=== PATIENT | female | born 1980 | race Caucasian/White ===

== ENCOUNTER → 2017-01-05 | Outpatient (CLI) | payer BC ==
[2017-01-09 01:36] LABS: CHLAMYDIA TRACH RNA*** NOT DETECTED (NOT DETECTED); GC (NEIS GONORRHOEAE)RNA** NOT DETECTED (NOT DETECTED)
== END | disposition home or self-care (01) ==
LOC: C.LAB 15:35
PROVIDERS: ATTEND Obstetrics & Gynecology
DX: Z34.81 Encounter for supervision of other normal pregnancy, first trimester (principal)

== ENCOUNTER → 2017-03-24 | Outpatient (CLI) | payer BC ==
[2017-03-24 11:17] LABS: BASO % 0.2 %; BASO ABS # 0.01 K/uL (0-0.2); COMPLETE YES; EOS % 1.1 %; HEMATOCRIT 37.9 % (37-47); IG% 0.5 %; LYMPH % 23.5 %; LYMPH ABS # 1.45 K/uL (1.2-3.4); MEAN CELL VOLUME 92.7 fL (80-100); MEAN CORPUSCULAR HEMOGLOBIN 31.3 pg (25-34); MEAN CORPUSCULAR HGB CONC 33.8 g/dl (32-36); MEAN PLATELET VOLUME 10.2 fL (7.4-10.4); MONO % 5.5 %; NEUT % 69.2 %; PLATELET COUNT 224 K/uL (130-400); RED BLOOD COUNT 4.09 M/uL (4.2-5.4); WHITE BLOOD COUNT 6.17 K/uL (4.8-10.8)
[2017-03-24 11:21] LABS: GTGD 50 Grams
== END | disposition home or self-care (01) ==
LOC: C.LAB 08:59
PROVIDERS: ATTEND Obstetrics & Gynecology
DX: Z34.82 Encounter for supervision of other normal pregnancy, second trimester (principal); Z3A.16 16 weeks gestation of pregnancy

== ENCOUNTER → 2017-08-05 | Outpatient (CLI) | payer BC | END | disposition home or self-care (01) | LOC: C.LABSPEC 14:27 | PROVIDERS: ATTEND Obstetrics & Gynecology | DX: O09.513 Supervision of elderly primigravida, third trimester (principal) ==

== ENCOUNTER 2017-09-03 03:39 | Inpatient (IN) | payer BC ==
[~2017-09-03] VITALS: Ht 162.6 cm; Wt 95.0 kg
[2017-09-10] MEDS ORDERED: LACTATED RINGER'S 1000ML 1,000 ML IV PRN (08:04)
[2017-09-10] MEDS ORDERED: MISOPROSTOLTAB 50 MCG TAB PO SCH (08:30)
[2017-09-10 08:33] LABS: HEMATOCRIT 37.6 % (37-47); HEMOGLOBIN 12.6 g/dL (12.0-16.0); MEAN CELL VOLUME 92.2 fL (80-100); MEAN CORPUSCULAR HEMOGLOBIN 30.9 pg (25-34); MEAN CORPUSCULAR HGB CONC 33.5 g/dl (32-36); MEAN PLATELET VOLUME 10.9 fL (7.4-10.4); PLATELET COUNT 165 K/uL (130-400); RED CELL DISTRIBUTION WIDTH CV 13.8 % (11.5-14.5); RED CELL DISTRIBUTION WIDTH SD 46.3 fL (36.4-46.3); WHITE BLOOD COUNT 6.51 K/uL (4.8-10.8)
[2017-09-10] MEDS ORDERED: CETI10TA84 PO (09:04)
[2017-09-10] MEDS ORDERED: PREN-83 (09:04)
[2017-09-10 09:05] VITALS: Ht 162.6 cm; Wt 95.0 kg
[2017-09-10] MEDS ORDERED: DINOPROSTONE 10 MG INSERT PV ONE (13:15)
[2017-09-10] MEDS ORDERED: NURSING VERBAL MED ORDER ONE (21:30)
[2017-09-10] MEDS ORDERED: MISOPROSTOLTAB 50 MCG TAB PO ONE (21:45)
[2017-09-11] MEDS ORDERED: LACTATED RINGER'S 1000ML 500 ML IV PRN (09:36)
[2017-09-11] MEDS ORDERED: OXYTOCIN 30 UNITS/500ML NSS IV PRN ×2 (09:45→18:30)
[2017-09-11] MEDS ORDERED: NURSING VERBAL MED ORDER ONE ×2 (14:30)
[2017-09-11] MEDS ORDERED: BUTORPHANOL TARTRATE 1 MG/ML VIAL ONE (14:37)
[2017-09-11] MEDS ORDERED: ONDANSETRON INJ 2 MG/ML 2 ML VIAL ONE (14:38)
[2017-09-11] MEDS ORDERED: ONDANSETRON INJ 2 MG/ML 2 ML VIAL IV PRN (14:45)
[2017-09-11] MEDS ORDERED: BUTORPHANOL TARTRATE 1 MG/ML VIAL IV PRN (14:45)
[2017-09-11] MEDS ORDERED: LANOLIN OINT EXT PRN (18:30)
[2017-09-11] MEDS ORDERED: DIPHTHERIA/TETANUS/PERTUSSIS 0.5 ML SYR/VIAL IM. ONE (18:30)
[2017-09-11] MEDS ORDERED: BENZOCAINE 20% AER SPR 82.5 GM CAN EXT PRN (18:30)
[2017-09-11] MEDS ORDERED: ACETAMINOPHEN/CODEINE 300/30MG TAB PO PRN ×2 (18:30)
[2017-09-11] MEDS ORDERED: SUPERCREAM 0.870 % 15GM JAR EXT PRN (18:30)
[2017-09-11] MEDS ORDERED: OXYCODONE/ACETAMINOPHEN 5-325 TAB PO PRN (18:30)
[2017-09-11] MEDS ORDERED: ACETAMINOPHEN 325 MG TAB PO PRN (18:30)
[2017-09-11] MEDS ORDERED: HYDROCORTISONE ACETATE 25 MG SUPP PR PRN (18:30)
--- NOTE | 2017-09-11 19:03 | DELIVERY SUMMARY ---
DATE OF OPERATION: 09/11/2017 Ms. Alvarado is a 37-year-old 1, para 1, was brought in for induction of labor. She was approximately 1 week over her due date. At the time we started the induction, while the head was high, cervix was only 1.5 cm dilated. The patient's due date is 09/03/2017. Blood type is A positive. Rubella immune. Vaginal beta strep negative. Stripped her membranes several times in the office. On the day of admission, she was about 1.5 cm dilated, head was high. Started out with 1 tablet of p.o. Cytotec 50 mcg. The patient was having no contractions when we started Cytotec. We then later gave her a second dose of Cytotec later in the evening of the day of admission around 9 or 10 p.m. She contracted well during the night. The contractions continued to get a little bit harder. When I arrived on Wednesday morning and checked her, she was a good 4 cm. We then augmented her contractions with IV Pitocin, and when she was about 5 cm, membranes were ruptured surgically, fluid was clear. We then continued to turn up the Pitocin. She developed a good labor pattern and she made good steady progress, and once the head became fully dilated, it dropped. She did receive about 1 or 2 doses of IV Stadol for pain control, that was it, and she pushed out a live via direct occiput anterior position over an intact perineum. Infant was suctioned through the mouth and the nose. There was a nuchal cord which was reduced over the head and the body. Shoulders were delivered without difficulty. Cord was allowed to pulsate due to the mother's wish and she was placed on the abdomen. After several minutes of pulsating, cord was clamped and cut. Cord blood was taken. With IV Pitocin running, the placenta was removed intact. Inspection revealed the perineum to be intact but she had 2 periurethral lacerations, worse on the right side, it went past the hymenal ring and up the vaginal mucosa. I used running 3-0 chromic to approximate the labia minora right down to the hymenal ring and then up the vagina until I got past the laceration. I did 1 or 2 interrupted [id number] sutures to complete the hemostatic process. I palpated and there was no defect. I then repeated the same thing for the left side, infiltrated the area with local and used a Vicryl, this time I started at the extent of the vaginal defect, approximated the hymenal ring and then went out to the labia majora, actually this one went out to the labia majora with a separate laceration to labia minora and labia minora laceration was repaired with 3-0 chromic. Following this, hemostasis was good. Palpation revealed no hematoma formation. I used a Graves catheter to empty the bladder and ensured patency of the urethra. I then removed all vaginal sponges and documented that the uterus had contracted nicely and that hemostasis was good. I attest to the content of the Intraoperative Record and any orders documented therein. Any exception s are noted below.
[2017-09-11] MEDS: DOCUSATE SODIUM 100 MG CAP PO SCH (20:00)
[2017-09-11 22:00] VITALS: BP 108/63; PULSE 76; TEMP 37.1
[2017-09-12 01:00] VITALS: BP 99/61; PULSE 77; TEMP 37
[2017-09-12 05:10] VITALS: BP 110/67; PULSE 69; TEMP 37
[2017-09-12 06:44] LABS: HEMATOCRIT 31.1 % (37-47); HEMOGLOBIN 10.6 g/dL (12.0-16.0)
[2017-09-12] MEDS: IBUPROFEN 600 MG TAB PO PRN ×3 (08:28→21:13)
[2017-09-12 08:30] VITALS: BP 105/63; PULSE 79; TEMP 37
[2017-09-12] MEDS: PRENATAL VITAMIN TAB PO SCH (08:31)
[2017-09-12] MEDS: FERROUS SULFATE 325 MG TAB PO SCH (08:31)
[2017-09-12] MEDS: DOCUSATE SODIUM 100 MG CAP PO SCH ×2 (08:31→19:47)
--- NOTE | 2017-09-12 08:34 | Progress Note ---
Subjective Sep 12, 2017. Subjective conversation w/ patient Ambulation: ambulating normally Voiding: no voiding problems Passing Gas: Yes Diet Tolerance: Regular Diet Lochia: Small Feeding Type: Breast Feeding Review of Systems Constitutional: + fever Objective Vital Signs Date Time Temp Pulse Resp B/P (MAP) Pulse Ox O2 Delivery O2 Flow Rate FiO2 09/12/17 05:10 37.0 69 20 110/67 (81) Room Air 09/12/17 01:00 37.0 77 20 99/61 (74) Room Air 09/12/17 01:00 Room Air 09/11/17 22:00 37.1 76 18 108/63 (78) Room Air Physical Exam General Appearance: WELL-APPEARING Respiratory/Chest: lungs clear Abdomen: normal bowel sounds, non tender Fundus: Firm, Non-Tender Extremities: no pedal edema, no calf tenderness Laboratory Results Last 24 Hours Test 09/12/17 06:20 Hemoglobin 10.6 g/dL Hematocrit 31.1 % Assessment and Plan Post- Day#: 1
[2017-09-12 13:00] VITALS: BP 108/67; PULSE 82; TEMP 36.8
[2017-09-12 16:20] VITALS: BP 112/65; PULSE 70; TEMP 37.2
[2017-09-12] MEDS ORDERED: BISACODYL 5 MG TABEC PO SCH (20:00)
[2017-09-12 23:20] VITALS: BP 99/55; PULSE 65; TEMP 36.5; O2SAT 97
[2017-09-13] MEDS: IBUPROFEN 600 MG TAB PO PRN ×2 (05:33→14:03)
[2017-09-13] MEDS ORDERED: BISACODYL 10 MG SUPP PR PRN (07:00)
[2017-09-13 07:38] VITALS: BP 100/60; PULSE 65; TEMP 36.5; O2SAT 99
[2017-09-13] MEDS: PRENATAL VITAMIN TAB PO SCH (08:02)
[2017-09-13] MEDS: DOCUSATE SODIUM 100 MG CAP PO SCH (08:02)
[2017-09-13] MEDS: FERROUS SULFATE 325 MG TAB PO SCH (08:02)
--- NOTE | 2017-09-13 09:03 | Progress Note ---
Subjective Sep 13, 2017. Subjective conversation w/ patient Ambulation: ambulating normally Voiding: no voiding problems Passing Gas: Yes Diet Tolerance: Regular Diet Lochia: Small Feeding Type: Breast Feeding Review of Systems Constitutional: + fever Objective Vital Signs Date Time Temp Pulse Resp B/P (MAP) Pulse Ox O2 Delivery O2 Flow Rate FiO2 09/13/17 07:38 36.5 65 14 100/60 (73) 99 Room Air 09/12/17 23:20 97 Room Air 09/12/17 23:20 36.5 65 18 99/55 (70) 97 Room Air 09/12/17 16:20 37.2 70 20 112/65 (81) Room Air 09/12/17 16:20 Room Air 09/12/17 13:00 36.8 82 18 108/67 (81) Physical Exam General Appearance: WELL-APPEARING Respiratory/Chest: chest non-tender, lungs clear Abdomen: non tender Fundus: Firm, Non-Tender Extremities: no pedal edema, no calf tenderness Assessment and Plan Post- Day#: 2
--- NOTE | 2017-09-13 09:05 | Discharge Instructions ---
Discharge Instructions Date of Service Sep 13, 2017. Admission Reason for Admission: Induction Discharge Discharge Diagnosis / Problem: post term induction Discharge Goals Goal(s): Routine recovery after delivery Activity Recommendations Activity Limitations: as noted below ACTIVITY RECOMMENDATIONS: * Gradual return to full activity over the next 2-3 weeks. * No lifting - nothing heavier than baby over the next 2-3 weeks. * Do not engage in vigorous exercise, sexual activity or sports until cleared by your physician. * Do not drive or operate any motorized equipment until cleared by your physician. * You may shower/bathe daily. DIET: Resume Previous Diet If Breast-feeding: * Increase caloric intake by 500 calories, eat 3 well balanced meals, 2 high protein snacks a day and drink 6-8 8oz. glasses of fluid per day. BREAST CARE: If you are not breast feeding: * Wear a supportive bra 24 hours a day for one to two weeks. * Avoid stimulating your breasts and nipples as much as possible during the first few weeks after delivery. * When taking a shower, have the warm water hit your back, not breasts. * When your breasts feel full, apply ice packs. Usually three to four times a day helps ease the discomfort. * Take a mild pain medication (Tylenol / Motrin) when you are uncomfortable. If breast feeding: * Use breast milk to lubricate nipples. Lansinoh cream may be used for sore nipples. You do not need to remove cream prior to breast feeding. If using a different brand of cream, check the label for directions regarding removal of cream prior to nursing. * Wear a supportive bra. * If having problems with breasts or breast feeding, call a architectural sales consultant or your health care provider. OVER THE COUNTER MEDICATION: * For discomfort or pain, you may use Acetaminophen (Tylenol), Ibuprofen (Advil ), or Naproxen (Aleve) following the package directions. * For constipation you may use Colace following the package directions. SPECIAL CARE INSTRUCTIONS: * Vaginal rest (no tampons, douching, intercourse) until after doctor 's visit. * control as discussed with doctor. * Verbalizes understanding of car seat law as reviewed with patient nursing. * Car Seat hand-out given and reviewed with patient by nursing. * Shaken baby information reviewed with patient by nursing. Call you doctor if: * Temperature greater than or equal to 100.4 degrees F or 38.0 degrees C. Take your temperature twice daily for a week. * Bleeding becomes heavier than the heaviest part of your period - saturating a sanitary pad within an hour. * Passing large clots. * Bleeding has a foul smelling odor. * Signs and symptoms of phlebitis: leg pain, warm, red or swollen area on leg. * "Baby Blues" lasting longer than two weeks. ++ If you have had a and incision has increased pain, redness, swelling, presence of any drainage, or if the incision starts to open up. If you have any questions or concerns, call your health care practitioner at [phone]. FOLLOW-UP VISIT: Please call the office at to schedule a 6 week examination. . Current Hospital Diet Patient's current hospital diet: Regular OB Diet Discharge Diet Recommended Diet: Regular Diet Pending Studies Studies pending at discharge: no Medical Emergencies . Who to Call and When: Medical Emergencies: If at any time you feel your situation is an emergency, please call 911 immediately. . Non-Emergent Contact Non-Emergency issues call your: Golf Cart Attendant Call Non-Emergent contact if: temperature is above 100.5 . . "Provider Documentation" section prepared by Saúl Barajas. . VTE Core Measure Inpt VTE Proph given/why not?: Treatment not indicated
[2017-09-13 15:15] VITALS: BP 118/70; PULSE 68; TEMP 36.6
[2017-09-13 16:45] VITALS: BP_DIAS 70; PULSE 68; TEMP 36.6
== END 2017-09-13 16:45 | disposition home or self-care (01) | DRG 775 ==
LOC: C.LD 09-10 07:31 → C.OBG 09-11 21:49
PROVIDERS: ADMIT Obstetrics & Gynecology; ATTEND Obstetrics & Gynecology
PROC: 3E0P7GC Introduction of Other Therapeutic Substance into Female Reproductive, Via Natural or Artificial Opening (ICD-10-PCS; 2017-09-10)
PROC: 0HQ9XZZ Repair Perineum Skin, External Approach (ICD-10-PCS; principal; 2017-09-11)
PROC: 10E0XZZ Delivery of Products of Conception, External Approach (ICD-10-PCS; principal; 2017-09-11)
DX: O48.0 Post-term pregnancy (principal); O70.0 First degree perineal laceration during delivery; O69.81X0 Labor and delivery complicated by cord around neck, without compression, not applicable or unspecified; Z37.0 Single live birth; Z3A.41 41 weeks gestation of pregnancy

== ENCOUNTER → 2017-10-26 | Outpatient (CLI) | payer BC ==
[~2017-10-26] MED LIST: CETI10TA84 PO; PREN-83
== END | disposition home or self-care (01) ==
LOC: C.PAPS 09:50
PROVIDERS: ATTEND Obstetrics & Gynecology
DX: Z39.2 Encounter for routine postpartum follow-up (principal)

== ENCOUNTER 2021-03-19 10:09 | Inpatient (IN) ==
[2021-03-19] MEDS ORDERED: OXYTOCIN 30 UNITS/500 ML BAG IV PRN ×2 (10:41→22:20)
[2021-03-19] MEDS ORDERED: LACTATED RINGER'S 1,000 ML IV PRN (10:41)
[2021-03-19] MEDS ORDERED: miSOPROStoL 50 MCG TAB PO ONE (10:41)
[2021-03-19 10:57] LABS: Hematocrit (blood only) 38.2 % (37-47); Hemoglobin 12.9 g/dL (12.0-16.0); Mean Corpuscular Hemoglobin 31.2 pg (25-34); Mean Corpuscular Hgb Conc 33.8 g/dL (32-36); Mean Corpuscular Volume 92.5 fL (80-100); Mean Platelet Volume 10.4 fL (7.4-10.4); Platelet Count 188 K/uL (130-400); RDW Coefficient of Variation 13.9 % (11.5-14.5); RDW Standard Deviation 47.1 fL (36.4-46.3); Red Blood Count 4.13 M/uL (4.2-5.4); White Blood Count 6.26 K/uL (4.8-10.8)
[2021-03-19] MEDS ORDERED: PATIENT'S HEIGHT AND/OR WEIGHT NEEDED SCH (11:15)
[2021-03-19] MEDS ORDERED: ACETAMINOPHEN 325 MG TAB PO STA (23:16)
[2021-03-20] MEDS ORDERED: LIDOCAINE 1% LOCAL 20 ML VIAL ONE (04:38)
[2021-03-20] MEDS ORDERED: HYDROCORTISONE ACETATE 25 MG SUPP PR PRN (05:06)
[2021-03-20] MEDS ORDERED: bisacodyL 10 MG SUPP PR PRN (05:06)
[2021-03-20] MEDS ORDERED: ACETAMINOPHEN 325 MG TAB PO PRN (05:06)
[2021-03-20] MEDS ORDERED: DIPHTHERIA/TETANUS/PERTUSSIS 0.5 ML SYR/VIAL IM ONE (05:06)
[2021-03-20] MEDS ORDERED: oxyCODONE/ACETAMINOPHEN 5mg/325mg TAB PO PRN (05:06)
[2021-03-20] MEDS ORDERED: OXYTOCIN 30 UNITS/500 ML BAG IV PRN (05:06)
[2021-03-20] MEDS ORDERED: miSOPROStoL 200 MCG TAB PR ONE (05:06)
[2021-03-20] MEDS ORDERED: SUPERCREAM 0.870% 15 GM JAR EXT PRN (05:06)
[2021-03-20] MEDS ORDERED: ACETAMINOPHEN W/CODEINE #3 1 TAB PO PRN (05:06)
[2021-03-20] MEDS ORDERED: BENZOCAINE 20% AER SPR 82.5 GM CAN EXT PRN (05:06)
[2021-03-20] MEDS ORDERED: Nursing to Pharmacy Communication SCH (08:45)
[2021-03-20] MEDS ORDERED: IBUPROFEN 600 MG TAB PO ONE (08:53)
--- NOTE | 2021-03-20 10:17 | Delivery Summary ---
DATE OF NOTE: 03/20/2021 She is 4, para 2, blood type is A positive, group B strep negative, was brought in for induct ion of labor. She was 41 weeks 3 days, tried stripping her membranes in the office about three times . On admission, she was having very few contractions. She was given p.o. Cytotec. With that, she s tarted to have a regular contraction pattern. They started to get harder eventually intensity of the contractions decreased and she was switched to IV Pitocin. She was then started on IV Pitocin, the Pitocin was gradually turned up. She had a good regular labor pattern and with this she delivered a live infant via direct occiput anterior position over an intact perineum. was suctioned throu gh the mouth and the nose after delivery of the head. Cord was allowed to pulsate for a minute, then it was clamped and cut. Cord blood was taken with IV Pitocin running the placenta was removed intac t. There was a very bloody laceration of the right periurethral area. This was sewn with a running interlocking suture of 3-0 chromic and it actually involved part of the urethra at about 11 o'clock. Because of this, we put in a Graves catheter with a bulb. I then used the 800 mcg of rectal Cytotec with that, uterus contracted nicely. Estimated blood loss was 500 mL. Job ID: [id number]
[2021-03-20] MEDS: IBUPROFEN 600 MG TAB PO PRN ×2 (13:39→18:26)
[2021-03-20] MEDS: PRENATAL VITAMIN 1 TAB PO SCH (16:48)
[2021-03-20] MEDS: DOCUSATE SODIUM 100 MG CAP PO SCH ×2 (16:48→20:45)
[2021-03-21] MEDS: IBUPROFEN 600 MG TAB PO PRN ×2 (03:22→09:08)
[2021-03-21] MEDS: PRENATAL VITAMIN 1 TAB PO SCH (09:08)
[2021-03-21] MEDS: DOCUSATE SODIUM 100 MG CAP PO SCH (09:12)
--- NOTE | 2021-03-21 09:24 | Obstetrical Progress Note ---
Date of Service March 21, 2021 Assessment & Plan Admission and Anticipated Discharge Date Admission Date: March 19, 2021 Subjective abdomen soft and non tender no calf tenderness ambulating well vaginal bleeding scant hgb 12.9 Results & Data ([facility]) Vital Signs (Past 12 Hours) Vital Signs Temp Pulse Resp BP 03/21/21 03:25 36.6 C 71 18 100/67 03/20/21 23:40 36.4 C L 66 16 95/59 L
[2021-03-21] MEDS ORDERED: bisacodyL 5 MG TABEC PO SCH (20:00)
== END 2021-03-21 14:15 | disposition home or self-care (01) | DRG 807 ==
LOC: 4S1 10:09 → 4S2 03-20 08:17